=== PATIENT | female | born 1985 | race Caucasian/White ===

== ENCOUNTER 2017-08-14 12:25 | Emergency (ER) | payer BC, OTHER ==
[~2017-08-14] VITALS: Ht 160 cm; Wt 61.7 kg
[~2017-08-14 12:25] MED LIST: CEPH500C3 PO; PRENTAB62 PO; SULF1SOL4 LEFT EYE; ZOFR4TAB3 SL
[2017-08-14 12:35] VITALS: BP 153/88; PULSE 90; RESP 18; TEMP 98.5; O2SAT 100
[2017-08-14] MEDS ORDERED: ZOLO25TA PO (12:50)
[2017-08-14 12:51] LABS: BILIRUBIN, URINE NEG (NEG); BLOOD, URINE TRACE (NEG); GLUCOSE,URINE NEG (NEG); KETONE, URINE TRACE mg/dL (NEG); NITRITE,URINE NEG (NEG); URINE LEUKOCYTE ESTERASE LARGE (NEG)
[2017-08-14 12:57] LABS: URINE COLOR YELLOW (YELLW/STRAW)
[2017-08-14 12:58] LABS: WBC, URINE 100-200 /hpf (0-5)
[2017-08-14 12:59] LABS: AMORPHOUS SEDIMENT, URINE FEW; BACTERIA, URINE MOD /hpf; TRANSITIONAL EPI CELLS, URINE 0-5 /hpf; WHITE BLOOD CELL CLUMPS FEW
--- NOTE | 2017-08-14 13:19 | PD ---
HPI Chief Complaint: Complaint Time Seen by Provider: 13:00 Travel History International Travel<30 days: No Contact w/Intl Traveler<30days: No Traveled to known affect area: No History of Present Illness HPI 31 year old female presents to ED for evaluation of dull, non radiating, intermittent abd pain onset yesterday associated with increased urinary frequency and dysuria. She has had similar pain in the past, 5 year prior in which she was diagnosed with a urinary tract and DC home, she reports this pain feels somewhat similar. The patient is not using a control method, sexual active with and LMP was two weeks prior. She denies any changes in vaginal discharge, new sexual partners, vaginal odor or hematuria, and fevers. She also denies diarrhea, N/V. Non smoker, social drinker, no other drug use. Risk Factors:none Modifying Factors:[None] Associated sign and symptoms: Abd pain and dysuria, no nausea/vomitting, no fevers. PFSH Past Medical History Depression: Yes Diminished Hearing: No Genitourinary: Yes (UTI) Influenza Vaccination: No ?: Not LMP: 2 WEEKS AGO : 3 Para: 2 Miscarriage: 1 Past Surgical History Oral Surgery: Yes (wisdom teeth) Social History Alcohol Use: Yes (OCCASIONAL) Tobacco Use: No Substance Use: No Allergies-Medications (Allergen,Severity, Reaction): Coded Allergies: No Known Allergies (Verified Adverse Reaction, Unknown, 08/14/17) Reported Meds & Prescriptions Reported Meds & Active Scripts Active Reported Zoloft (Sertraline HCl) 25 Mg Tab 25 Mg PO DAILY Review of Systems Except as stated in HPI: all other systems reviewed are Neg Physical Exam Narrative GENERAL: Well developed female on ER bed, appears uncomfortable, mild distress SKIN: Warm and dry. HEAD: Atraumatic. Normocephalic. EYES: Pupils equal and round. No scleral icterus. No injection or drainage. ENT: No nasal bleeding or discharge. Mucous membranes pink and moist. NECK: Trachea midline. No JVD. CARDIOVASCULAR: Regular rate and rhythm. RESPIRATORY: No accessory muscle use. Clear to auscultation. Breath sounds equal bilaterally. GASTROINTESTINAL: Abdomen soft, tenderness to the RLQ, no rebound, nondistended. Hepatic and splenic margins not palpable. GENITOURINARY: Normal external genitalia without lesions or erythema. Vaginal vault without blood or drainage. Cervical os was closed without drainage. No cervical motion tenderness. Uterus nontender and nonenlarged. Bilateral adnexa nontender without masses MUSCULOSKELETAL: Extremities without clubbing, cyanosis, or edema. No obvious deformities. No CVA tenderness NEUROLOGICAL: Awake and alert. No obvious cranial nerve deficits. Motor grossly within normal limits. Five out of 5 muscle strength in the arms and legs. Normal speech. PSYCHIATRIC: Appropriate mood and affect; insight and judgment normal. Data Data Last Documented VS Vital Signs Date Time Temp Pulse Resp B/P (MAP) Pulse Ox O2 Delivery O2 Flow Rate FiO2 08/14/17 14:32 89 18 128/82 (97) 98 Room Air 08/14/17 12:35 98.5 Orders Orders Urinalysis - C+S If Indicated (08/14/17 12:41) Ed Urine Pregnancytest Poc (08/14/17 12:41) Urine Culture (08/14/17 12:41) Ct Abd/Pel W/O Iv Contrast (08/14/17 13:10) Morphine Inj (Morphine Inj) (08/14/17 14:15) Ondansetron Inj (Zofran Inj) (08/14/17 14:15) Morphine Inj (Morphine Inj) (08/14/17 14:30) Us Pelvis Comp W Doppler (08/14/17 14:06) Ed Discharge Order (08/14/17 15:19) Gc And Chlamydia Pcr (08/14/17 15:28) Wet Prep Profile (08/14/17 15:28) Labs Laboratory Tests Test 08/14/17 12:41 08/14/17 13:35 Urine Collection Type CLEAN CATCH Urine Color YELLOW Urine Turbidity MOD Urine pH 7.0 Urine Specific [place] 1.024 Urine Protein NEG mg/dL Urine Glucose (UA) NEG mg/dL Urine Ketones TRACE mg/dL Urine Occult Blood TRACE Urine Nitrite NEG Urine Bilirubin NEG Urine Leukocyte Esterase LARGE Urine RBC 4-9 /hpf Urine WBC 100-200 /hpf Urine WBC Clumps FEW Urine Squamous Epithelial Cells 6-8 /hpf Urine Transitional Epithelial Cells 0-5 /hpf Urine Amorphous Sediment FEW Urine Bacteria MOD /hpf Microscopic Urinalysis Comment CULTURE INDICATED Urine Collection Time 1241 Clue Cells (Wet Prep) NONE SEEN Vaginal Trichomonas (Wet Prep) NONE SEEN Vaginal Yeast (Wet Prep) NONE SEEN MDM Medical Decision Making Medical Screen Exam Complete: Yes Emergency Medical Condition: Yes Medical Record Reviewed: Yes Interpretation(s) Laboratory Tests Test 08/14/17 12:41 08/14/17 13:35 Urine Turbidity MOD (CLEAR) Urine Ketones TRACE mg/dL (NEG) Urine Leukocyte Esterase LARGE (NEG) Urine RBC 4-9 /hpf (0-3) Urine WBC 100-200 /hpf (0-5) Urine WBC Clumps FEW (NONE) Urine Squamous Epithelial Cells 6-8 /hpf (0-5) Urine Bacteria MOD /hpf (NONE) Last 24 hours Impressions Pelvis Ultrasound 08/14/17 1406 Signed Impressions: Service Date/Time: Monday, August 14, 2017 14:32 - CONCLUSION: 5 cm right ovarian cyst otherwise unremarkable. Followup examination to insure resolution is recommended. 1. Kalin Dick MD Abdomen/Pelvis CT 08/14/17 1310 Signed Impressions: Service Date/Time: Monday, August 14, 2017 13:39 - CONCLUSION: 1. Right adnexal mass measuring 5.7 x 5.1 x 5.3 mm. Pelvic ultrasound may be helpful for further evaluation of this finding if clinically indicated. 2. No acute obstructive uropathy. Kaiser Ríso MD Differential Diagnosis Renal colic versus UTI versus pyelonephritis versus appendicitis Narrative Course Lab work shows significant UTI. Wet prep was unremarkable. Pelvic exam was fairly unremarkable. A CAT scan was done to further rule out kidney stones and shows a right 5 cm ovarian mass of and ultrasound was done for further evaluation of mass. The ultrasound shows that this appears to be a ovarian cysts. At this point, my plan would be to release her with treatment for UTI and have her follow-up with [facility]. Return for any worsening in pain or new symptoms as needed. The plan has been discussed with her and she states understanding. Diagnosis Primary Impression: Unspecified ovarian cyst, right side Additional Impression: UTI (urinary tract infection) Med/Other Pt SpecificInfo: Prescription(s) given Scripts Ondansetron Odt (Zofran Odt) 4 Mg Tab 4 MG SL Q6HR Y for Nausea/Vomiting, #7 TAB 0 Refills Prov: Manjula Shirley MD 08/14/17 Tramadol (Tramadol) 50 Mg Tab 50 MG PO Q6H Y for PAIN, #7 TAB 0 Refills Prov: Soontharothiglesia,Rewadee MD 08/14/17 Nitrofurantoin Monohydrate Macrocrystals (Macrobid) 100 Mg Cap 100 MG PO BID for Infection for 7 Days, #14 CAP 0 Refills Prov: Manjula Shirley MD 08/14/17 Disposition: 01 DISCHARGE HOME Condition: Stable Manjula Shirley MD Aug 14, 2017 13:19
--- NOTE | 2017-08-14 14:02 | RADRPT ---
EXAM DATE/TIME: 08/14/2017 13:39 [facility] COMPARISON: No previous studies available for comparison. INDICATIONS : Lower abdominal pain radiating to both sides. Renal stone protocol. ORAL CONTRAST: No oral contrast ingested. RADIATION DOSE: 9.25 CTDIvol (mGy) MEDICAL HISTORY : None SURGICAL HISTORY : None. ENCOUNTER: Initial ACUITY: 2 days PAIN SCALE: 4/10 LOCATION: Bilateral lower quadrant TECHNIQUE: Volumetric scanning of the abdomen and pelvis was performed. Using automated exposure control and ad justment of the mA and/or kV according to patient size, radiation dose was kept as low as reasonably achievable to obtain optimal diagnostic quality images. DICOM format image data is available electro nically for review and comparison. FINDINGS: LOWER LUNGS: The visualized lower lungs are clear. LIVER: Homogeneous density without lesion. There is no dilation of the biliary tree. No calcified gallston es. SPLEEN: Normal size without lesion. PANCREAS: Within normal limits. KIDNEYS: Normal in size and shape. There is no mass, stone, or hydronephrosis. ADRENAL GLANDS: Within normal limits. VASCULAR: There is no aortic aneurysm. BOWEL/MESENTERY: The stomach, small bowel, and colon demonstrate no acute abnormality. There is no free intraperitone al air or fluid. ABDOMINAL WALL: Within normal limits. RETROPERITONEUM: There is no lymphadenopathy. BLADDER: No wall thickening or mass. REPRODUCTIVE: There is a right adnexal mass measuring 5.7 x 5.1 x 5.3 cm. Pelvic ultrasound may be helpful for furt her evaluation of this finding if clinically indicated. INGUINAL: There is no lymphadenopathy or hernia. MUSCULOSKELETAL: Within normal limits for patient age. CONCLUSION: 1. Right adnexal mass measuring 5.7 x 5.1 x 5.3 mm. Pelvic ultrasound may be helpful for further eval uation of this finding if clinically indicated. 2. No acute obstructive uropathy. Kaiser Ríos MD on August 14, 2017 at 13:57 Board Certified Radiologist. This report was verified electronically.
[2017-08-14] MEDS ORDERED: ONDANSETRON HCL 4 MG/2 ML VIAL IV PUSH ONE (14:15)
[2017-08-14] MEDS ORDERED: MORPHINE SULFATE 2 MG/ML INJ IV PUSH ONE (14:15)
[2017-08-14] MEDS ORDERED: MORPHINE SULFATE 2 MG/ML INJ IM ONE (14:30)
[2017-08-14 14:32] VITALS: BP 128/82; PULSE 89; RESP 18; O2SAT 98
--- NOTE | 2017-08-14 15:09 | RADRPT ---
EXAM DATE/TIME: 08/14/2017 14:32 [facility] COMPARISON: CT ABDOMEN & PELVIS W/O CONTRAST, August 14, 2017, 13:39. INDICATIONS : Right pelvic pain. Abnormal CT. MEDICAL HISTORY : Right pelvic pain. SURGICAL HISTORY : None. ENCOUNTER: ACUITY: 1 day PAIN SCORE: 8/10 LOCATION: Bilateral pelvis MEASUREMENTS: UTERUS: 10.0 x 4.4 x 5.8 cm ENDOMETRIAL STRIPE: 7 mm RIGHT OVARY: 5.8 x 2.9 x 5.4 cm LEFT OVARY: 3.2 x 1.2 x 2.3 cm FINDINGS: The uterus is normal in size, and shape for the patient's age. No focal masses are identified. The en dometrial stripe is normal. The left ovary appears normal. A 5 cm right ovarian cyst is present. Norm al Doppler flow is present bilaterally. CONCLUSION: 5 cm right ovarian cyst otherwise unremarkable. Followup examination to insure resolution is recommen ded. 1. Kalin Dick MD on August 14, 2017 at 15:05 Board Certified Radiologist. This report was verified electronically.
[2017-08-14] MEDS ORDERED: MACR100C2 PO (15:52)
[2017-08-14] MEDS ORDERED: ZOFR4TAB3 SL (15:52)
[2017-08-14] MEDS ORDERED: TRAM50TA PO (15:52)
== END 2017-08-14 16:00 | disposition home or self-care (01) ==
LOC: PHED 12:25
DX: N83.201 Unspecified ovarian cyst, right side (principal); N39.0 Urinary tract infection, site not specified; B96.89 Other specified bacterial agents as the cause of diseases classified elsewhere
CPT/HCPCS: 74176; 76856; 81001; 84703; 87077; 87086; 87186; 87210; 87491; 87591; 93975; 96372; 99285; J2270